=== PATIENT | male | born 1960 | race Two or more races ===

== ENCOUNTER 2019-03-31 06:43 | Inpatient (IN) | payer BC, OTHER ==
[~2019-03-31] VITALS: Ht 162.6 cm; Wt 75.6 kg
--- NOTE | 2019-03-31 06:45 | NUR ---
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
[2019-03-31] MEDS ORDERED: OMNIPAQUE 350 MG/ML, 100ML BOTTLE ONE (07:09)
--- NOTE | 2019-03-31 07:21 | NUR ---
06[phone] van paged [phone] van [phone] van [phone] spoke with [address] van
[2019-03-31 07:22] LABS: BASOPHILS # (AUTO) 0.05 x10^3/uL (0-0.1); BASOPHILS % (AUTO) 1 % (0-1); EOSINOPHILS # (AUTO) 0.24 x10^3/uL (0-0.4); EOSINOPHILS % (AUTO) 3 % (1-7); LYMPHOCYTES # (AUTO) 3.29 x10^3/uL (1-3.4); LYMPHOCYTES % (AUTO) 42 % (22-44); MD NO; MEAN CORPUSCULAR HEMOGLOBIN 26.5 pg (27.5-34.5); MEAN CORPUSCULAR VOLUME 80.3 fL (81-97); MEAN PLATELET VOLUME 7.7 fL (7.4-10.4); MONOCYTES # (AUTO) 0.76 x10^3/uL (0.2-0.8); MONOCYTES % (AUTO) 10 % (2-9); NEUTROPHILS # (AUTO) 3.44 x10^3/uL (1.8-6.8); NEUTROPHILS % (AUTO) 44 % (42-75); PLATELET COUNT 273 x10^3/uL (130-400); RED BLOOD COUNT 6.17 x10^6/uL (4.38-5.82); RED CELL DISTRIBUTION WIDTH 16.1 % (9.4-14.8)
[2019-03-31] MEDS ORDERED: SODIUM CHLORIDE 0.9% 1,000 ML IV ONE (07:53)
--- NOTE | 2019-03-31 07:53 | NUR ---
LATE ENTRY 724 DR JONES ASSESSED PT THROUGH TELE MONITOR. FAMILY AT BEDSIDE. ORDER REC'D AT 0742 TO GIVE TPA BOLUS DOSE GIVEN @ 0744 AND MAINTENANCE DOSE STARTED AT 0745. DOSAGES DOUBLE CHECKED BY 2 RN'S ANDREEA, CCU RN, AND RADHA LORENZO RN.
[2019-03-31 07:54] LABS: INTERNATIONAL NORMALIZED RATIO 0.98 (0.93-1.1); PROTHROMBIN TIME 10.4 Seconds (9.6-11.5)
[2019-03-31] MEDS ORDERED: ALTEPLASE 7 MG in SYRINGE 1 EA IVPush ONE (08:00)
[2019-03-31] MEDS ORDERED: ALTEPLASE IV ONE (08:00)
[2019-03-31] MEDS ORDERED: SODIUM CHLORIDE FLUSH 10ML SYR IVF PRN (08:00)
--- NOTE | 2019-03-31 08:45 | NUR ---
PT VOIDED 400ML CLEAR YELLOW URINE USING URINAL W/O DIFFICULTY
[2019-03-31] MEDS ORDERED: ALTEPLASE 1 MG/ML, 100ML ONE (09:20)
--- NOTE | 2019-03-31 09:28 | NUR ---
LATE ENTRY 0905, PT TO CCU, SBAR RPT WITH BEDSIDE NEURO EXAM DONE AT BEDSIDE.
[2019-03-31] MEDS: SODIUM CHLORIDE 0.9% 1,000 ML IV SCH ×2 (12:35→17:43)
[2019-03-31] MEDS ORDERED: POLYETHYLENE GLYCOL 17 GM PACKET PO PRN (13:00)
[2019-03-31] MEDS ORDERED: BISACODYL 10 MG SUPP PR PRN (13:00)
[2019-03-31] MEDS ORDERED: ENALAPRILAT 1.25 MG/ML, 2ML IVPush PRN (13:00)
[2019-03-31] MEDS ORDERED: LABETALOL 5MG/ML, 20ML IVPush PRN (13:00)
[2019-03-31] MEDS ORDERED: ONDANSETRON 2MG/ML, 2ML IVPush PRN (13:00)
[2019-03-31] MEDS ORDERED: AMLO10TA8 PO (17:45)
[2019-03-31] MEDS ORDERED: METO25TA91 PO (17:45)
[2019-03-31] MEDS ORDERED: ASPI-650 PO (17:45)
[2019-03-31] MEDS ORDERED: LISI-167 PO (17:45)
[2019-04-01 04:00] VITALS: BP 135/72
[2019-04-01] MEDS: SODIUM CHLORIDE 0.9% 1,000 ML IV SCH (06:17)
[2019-04-01] MEDS: SENNA/DOCUSATE TABLET PO SCH (09:00)
[2019-04-01] MEDS: LISINOPRIL 10 MG TABLET PO SCH (09:55)
[2019-04-01] MEDS ORDERED: CLOPIDOGREL 300 MG TABLET PO ONE (10:30)
[2019-04-01 11:04] LABS: CHOL/HDL RATIO 5.6; LDL/HDL RATIO 3.7 (0.5-3.0)
[2019-04-01] MEDS: APIXABAN 5 MG TABLET PO SCH ×2 (11:41→21:37)
[2019-04-01 20:06] VITALS: BP 114/78
[2019-04-01] MEDS ORDERED: METOPROLOL SUCCINATE 25 MG TAB.ER.24H PO SCH (21:00)
[2019-04-01] MEDS ORDERED: AMLODIPINE 10 MG TAB PO SCH (21:00)
[2019-04-01] MEDS: ATORVASTATIN 80 MG TABLET PO SCH (21:37)
[2019-04-02 02:03] VITALS: BP 106/74
[2019-04-02 07:33] VITALS: BP 116/77
[2019-04-02] MEDS: SENNA/DOCUSATE TABLET PO SCH (09:00)
[2019-04-02] MEDS ORDERED: CLOPIDOGREL 75 MG TABLET PO SCH (09:00)
[2019-04-02] MEDS: ACETAMINOPHEN 325 MG TABLET PO PRN ×2 (10:21→21:46)
[2019-04-02] MEDS: APIXABAN 5 MG TABLET PO SCH ×2 (10:21→21:31)
[2019-04-02] MEDS: PANTOPROZOLE 40MG TABLET PO SCH (10:21)
[2019-04-02] MEDS: LISINOPRIL 10 MG TABLET PO SCH (10:22)
[2019-04-02 12:04] VITALS: BP 116/78
[2019-04-02] MEDS: METOPROLOL TARTRATE 25 MG TABLET PO SCH ×2 (15:43→21:31)
[2019-04-02 19:54] VITALS: BP 114/77
[2019-04-02] MEDS ORDERED: METOPROLOL SUCCINATE 50 MG TAB.ER.24H PO SCH (21:00)
[2019-04-02] MEDS ORDERED: AMLODIPINE 10 MG TAB PO SCH (21:00)
[2019-04-02] MEDS: ATORVASTATIN 80 MG TABLET PO SCH (21:31)
[2019-04-03 01:00] VITALS: BP 106/71
[2019-04-03] MEDS: METOPROLOL TARTRATE 25 MG TABLET PO SCH ×2 (03:30→08:46)
[2019-04-03 03:38] VITALS: BP 94/65
[2019-04-03 03:39] VITALS: BP 97/62
[2019-04-03] MEDS: PANTOPROZOLE 40MG TABLET PO SCH (05:49)
[2019-04-03 07:31] VITALS: BP 109/71
[2019-04-03] MEDS: SENNA/DOCUSATE TABLET PO SCH (08:46)
[2019-04-03] MEDS: LISINOPRIL 10 MG TABLET PO SCH (08:46)
[2019-04-03] MEDS: APIXABAN 5 MG TABLET PO SCH ×2 (08:46→20:28)
[2019-04-03 12:35] VITALS: BP 115/82
[2019-04-03] MEDS: METOPROLOL SUCCINATE 50 MG TAB.ER.24H PO SCH (16:41)
[2019-04-03] MEDS: ATORVASTATIN 80 MG TABLET PO SCH (20:28)
[2019-04-03 20:37] VITALS: BP 116/78
[2019-04-04 02:07] VITALS: BP 114/78
[2019-04-04 05:55] VITALS: BP 111/71
[2019-04-04] MEDS: METOPROLOL SUCCINATE 50 MG TAB.ER.24H PO SCH (06:05)
[2019-04-04] MEDS: PANTOPROZOLE 40MG TABLET PO SCH (06:05)
[2019-04-04 07:26] VITALS: BP 118/78
[2019-04-04] MEDS: LISINOPRIL 10 MG TABLET PO SCH (08:40)
[2019-04-04] MEDS: APIXABAN 5 MG TABLET PO SCH (08:40)
[2019-04-04] MEDS: SENNA/DOCUSATE TABLET PO SCH (09:00)
[2019-04-04] MEDS ORDERED: APIX5TAB PO (10:50)
[2019-04-04] MEDS ORDERED: METO-93 PO (10:50)
[2019-04-04] MEDS ORDERED: ATOR-2 PO (10:50)
[2019-04-04] MEDS ORDERED: LISI-167 PO (10:57)
== END 2019-04-04 12:15 | disposition home health service (06) | DRG 61 ==
LOC: MERGE 06:43 → EDSEX 06:43 → EDBD 06:43 → ED 07:30 → EDIP 08:07 → CCU 09:07 → 4EST 04-01 14:17 → DCLOUNGE 04-04 11:47
PROVIDERS: ADMIT Internal Medicine; ATTEND Family Medicine
DX: I63.512 Cerebral infarction due to unspecified occlusion or stenosis of left middle cerebral artery (principal); I50.31 Acute diastolic (congestive) heart failure; D68.69 Other thrombophilia; I48.20 Chronic atrial fibrillation, unspecified; G81.91 Hemiplegia, unspecified affecting right dominant side; E78.5 Hyperlipidemia, unspecified; F17.210 Nicotine dependence, cigarettes, uncomplicated; I11.0 Hypertensive heart disease with heart failure; I49.5 Sick sinus syndrome; Z79.82 Long term (current) use of aspirin; Z82.49 Family history of ischemic heart disease and other diseases of the circulatory system; R29.706 NIHSS score 6; I34.0 Nonrheumatic mitral (valve) insufficiency; Z79.899 Other long term (current) drug therapy
CPT/HCPCS: 36415; 70450; 70496; 70498; 70551; 71045; 80047; 80061; 83735; 83880; 84100; 85025; 85610; 85730; 87081; 93005; 93306; 93356; 96365; 96375; G0378; J2997; Q9967; 92523-GN; J7030

== ENCOUNTER → 2019-04-29 | Outpatient (CLI) | payer BC ==
[~2019-04-29] MED LIST: AMLO10TA8 PO; APIX5TAB PO; ASPI-650 PO; ATOR-2 PO; LISI-167 PO; METO-93 PO; METO25TA91 PO; REGADENOSON 0.4 MG/5 ML SYRINGE ONE
== END | disposition home or self-care (01) ==
LOC: CFH 08:06
PROVIDERS: ATTEND Internal Medicine Cardiovascular Disease
DX: I34.0 Nonrheumatic mitral (valve) insufficiency (principal); I48.91 Unspecified atrial fibrillation; I63.9 Cerebral infarction, unspecified; I10 Essential (primary) hypertension
CPT/HCPCS: 78452; 93017; A9502; J2785

== ENCOUNTER 2019-05-07 07:43 | Day surgery (SDC) | payer BC ==
[~2019-05-07] VITALS: Ht 162.6 cm; Wt 75.0 kg
[~2019-05-07 07:43] MED LIST changes: -REGADENOSON 0.4 MG/5 ML SYRINGE ONE
[2019-05-07] MEDS ORDERED: SODIUM CHLORIDE 0.9% 1,000 ML IV SCH (08:00)
[2019-05-07 08:09] VITALS: BP 129/91
[2019-05-07] MEDS ORDERED: [UNRECOGNIZED DRUG - OTHER] PO (08:21)
[2019-05-07] MEDS ORDERED: PROPOFOL 10 MG/ML, 20ML ONE (09:10)
== END 2019-05-07 10:30 | disposition home or self-care (01) ==
LOC: CACL 07:43
PROVIDERS: ATTEND Internal Medicine Cardiovascular Disease
DX: I48.91 Unspecified atrial fibrillation (principal); I34.0 Nonrheumatic mitral (valve) insufficiency; I10 Essential (primary) hypertension; E78.00 Pure hypercholesterolemia, unspecified; I69.351 Hemiplegia and hemiparesis following cerebral infarction affecting right dominant side; Z79.01 Long term (current) use of anticoagulants; Z79.899 Other long term (current) drug therapy
CPT/HCPCS: 92960; 93005; 93312; 93321; 93325; J2704

== ENCOUNTER → 2020-02-22 | Outpatient (CLI) | payer BC, OTHER ==
[~2020-02-22] MED LIST changes: +AMLO-211 PO; -AMLO10TA8 PO; +[UNRECOGNIZED DRUG - OTHER] PO
== END | disposition home or self-care (01) ==
LOC: CFH 07:01
PROVIDERS: ATTEND Internal Medicine Cardiovascular Disease
DX: I08.8 Other rheumatic multiple valve diseases (principal); I27.20 Pulmonary hypertension, unspecified
CPT/HCPCS: 93306